=== PATIENT | male | born 1980 | race Caucasian/White ===

== ENCOUNTER 2018-09-10 11:34 | Emergency (ER) | payer SELFPAY ==
[~2018-09-10 11:34] MED LIST: AMOX500C7 PO; CEP250 PO; CLAR500T3 PO; DOXY-179 PO; NO RTN MEDS; OMEP40CA45 PO; WARF5VIA3 PO; [UNRECOGNIZED DRUG - CODE] PO
--- NOTE | 2018-09-10 11:35 | ER Report ---
History and Physical Time Seen By MD: 11:32 HPI/ROS CHIEF COMPLAINT: Medication withdrawal HISTORY OF PRESENT ILLNESS: Patient is a 37-year-old male here with complaints of medication withdrawal from Effexor which he ran out of 3-4 days ago. Patient reportedly was incarcerated up to July 22 per patient report and was given a 30 day supply of this medication which she reports taking 375 mg daily. Patient reports that since running out of the medication he has become increasingly aggressive, anxious and attributes the symptoms to medication withdrawal side effects. Patient reports headache, generalized anxiety. Denies homicidal or suicidal ideations. REVIEW OF SYSTEMS: Constitutional: No fever, no chills. Eyes: No discharge. + Blurry vision ENT: No sore throat. Cardiovascular: No chest pain, no palpitations. Respiratory: No cough, no shortness of breath. Gastrointestinal: No abdominal pain, no vomiting. Genitourinary: No hematuria. Musculoskeletal: No back pain. Skin: No rashes. Neurological: + headache. Psych: Generalized anxiety, denies suicidal or homicidal ideations Allergies: Coded Allergies: No Known Allergies (Verified Allergy, Mild, 09/03/11) Home Meds Active Scripts Venlafaxine Hcl (VENLAFAXINE HCL ER) 150 Mg Tab.er.24, 300 MG PO QDAY for 30 Days, #60 TAB Prov:JACINTA CERNA DO 09/10/18 Venlafaxine Hcl (VENLAFAXINE HCL ER) 75 Mg Cap.er.24h, 75 MG PO QDAY for 30 Days, #30 TAB Prov:JACINTA CERNA DO 09/10/18 Reported Medications Venlafaxine Hcl (EFFEXOR XR) 150 Mg Cap.er.24h, 300 MG PO QDAY 09/10/18 Venlafaxine Hcl (EFFEXOR XR) 75 Mg Cap.er.24h, 75 MG PO QDAY 09/10/18 Discontinued Reported Medications Omeprazole (Prilosec) 40 Mg Capsule.dr, 40 MG PO QDAY, #14 12/13/11 Clarithromycin (BIAXIN (OR EQUIV)) 500 Mg Tab, 500 MG PO BID, #14 12/13/11 Amoxicillin (AMOXIL (OR EQUIV)) 500 Mg Cap, 1000 MG PO BID, #14 12/13/11 Warfarin Sodium (Coumadin) 5 Mg/Vial Vial, 5 MG PO QDAY, #30 It is very important that you take your coumadin exactly as prescribed, have blood work to monitor your PT/INR values, and follow up with your health care provider as prescribed. Diet and medication can affect the PT/INR level. Keep your diet pretty much the same day to day. Many foods contain Vitamin K which helps blood to clot and can affect the way your coumadin works. You don't need to avoid foods that have Vitamin K, but you do need to eat about the same amount of them every day. Be sure to tell your provider before changing your diet for any reason (weight loss, illness, etc.) Do not start or discontinue any medications, prescribed or over the counter, except on the advise of your provider or pharmacist. Coumadin (Warfarin) increases the risk of bleeding. 12/13/11 Cephalexin Monohydrate (Keflex) 250 Mg Cap, 250 MG PO TID, #15 09/03/11 [No Rtn Meds] No Conflict Check, 0 Refills 02/04/10 Hx Smoking: Yes (1 PPD) Hx Substance Use Disorder: No Hx Alcohol Use: No Constitutional Vital Sign - Last 24 Hours 09/10/18 11:38 Pulse 91 Resp 18 B/P (MAP) 116/73 Pulse Ox 98 O2 Delivery Room Air Physical Exam General Appearance: The patient is alert, has no immediate need for airway protection and no signs of toxicity. Anxious appearing, tremulous Eyes: Pupils equal and round no pallor or injection. ENT, Mouth: Mucous membranes are moist. Respiratory: There are no retractions, lungs are clear to auscultation. Cardiovascular: Regular rate and rhythm. Gastrointestinal: Abdomen is soft and non tender, no masses, bowel sounds normal. Neurological: No focal neurological deficits, alert and oriented Skin: Warm and dry, no rashes. Musculoskeletal: Neck is supple non tender. Extremities are nontender, nonswollen and have full range of motion. Psych: Anxious appearing, denies homicidal or suicidal ideations DIFFERENTIAL DIAGNOSIS: After history and physical exam differential diagnosis was considered for medication side effect, generalized anxiety disorder, depression, substance use, medications had Medical Decision Making Data Points Result Diagram: 09/10/18 1148 09/10/18 1148 Laboratory Hematology Test 09/10/18 11:48 White Blood Count 4.7 k/uL (4.5-11.0) Red Blood Count 5.50 M/uL (4.00-5.60) Hemoglobin 17.7 g/dL (14.0-18.0) Hematocrit 52.1 % (42.0-52.0) H Mean Corpuscular Volume 94.6 fL (80.0-96.0) Mean Corpuscular Hemoglobin 32.1 pg (26.0-33.0) Mean Corpuscular Hemoglobin Concent 33.9 g/dL (32.0-36.0) Red Cell Distribution Width 13.9 % (11.5-14.5) Platelet Count 242 K/uL (150-450) Mean Platelet Volume 8.3 fL (7.2-11.1) Neutrophils (%) (Auto) 46.6 % (39.4-72.5) Lymphocytes (%) (Auto) 42.6 % (17.6-49.6) Monocytes (%) (Auto) 9.2 % (4.1-12.4) Eosinophils (%) (Auto) 0.8 % (0.4-6.7) Basophils (%) (Auto) 0.8 % (0.3-1.4) Nucleated RBC Relative Count (auto) 0.2 /100WBC Neutrophils # (Auto) 2.2 K/uL (2.0-7.4) Lymphocytes # (Auto) 2.0 K/uL (1.3-3.6) Monocytes # (Auto) 0.4 K/uL (0.3-1.0) Eosinophils # (Auto) 0.0 K/uL (0.0-0.5) Basophils # (Auto) 0.0 K/uL (0.0-0.1) Nucleated RBC Absolute Count (auto) 0.01 K/uL Peripheral Blood Smear No Y/N Chemistry Test 09/10/18 11:48 09/10/18 11:58 Sodium Level 141 mmol/L (137-145) Potassium Level 4.0 mmol/L (3.5-5.0) Chloride Level 103 mmol/L (98-107) Carbon Dioxide Level 26 mmol/L (22-30) Blood Urea Nitrogen 16 mg/dl (9-21) Creatinine 0.90 mg/dl (0.66-1.25) Glomerular Filtration Rate Calc > 60.0 Random Glucose 127 mg/dl (75-110) Calcium Level 9.6 mg/dl (8.4-10.2) Total Bilirubin 0.9 mg/dl (0.2-1.3) Aspartate Amino Transf (AST/SGOT) 41 U/L (0-35) Alanine Aminotransferase (ALT/SGPT) 36 U/L (0-56) Alkaline Phosphatase 60 U/L (0-126) Troponin I < 0.012 ng/ml Total Protein 7.3 g/dl (6.3-8.2) Albumin 4.5 g/dl (3.5-5.0) Lipase 157 U/L (23-300) Whole Blood Glucose 101 mg/DL (75-110) Toxicology Test 09/10/18 11:45 09/10/18 11:48 Urine Opiates Screen Negative Urine Barbiturates Screen Negative Ur Tricyclic Antidepressants Screen Negative Urine Phencyclidine Screen Negative Urine Amphetamines Screen Positive Urine Benzodiazepines Screen Negative Urine Cocaine Screen Negative Urine Cannabinoids Screen Negative Serum Alcohol < 10 mg/dl Urinalysis Test 09/10/18 11:45 Urine Color Yellow Urine Clarity Clear Urine pH 5.0 pH (4.8-9.5) Urine Specific [place] 1.018 Urine Protein Negative mg/dL (NEGATIVE) Urine Glucose (UA) Negative mg/dL (NEGATIVE) Urine Ketones Negative mg/dL (NEGATIVE) Urine Blood Negative (NEGATIVE) Urine Nitrite Negative (NEGATIVE) Urine Bilirubin Negative (NEGATIVE) Urine Urobilinogen Negative mg/dL (0.2-1.9) Urine Leukocyte Esterase Negative (NEGATIVE) Urine RBC <1 /HPF (0-2/HPF) Urine WBC <1 /HPF (0-5/HPF) Urine Squamous Epithelial Cells None /LPF (</=FEW) Urine Bacteria Negative /HPF (NONE-FEW) Urine Mucus Few /HPF (NONE-FEW) EKG/Imaging Imaging PATIENT NAME: Taran Rivero : 1980 MR: [id number] V: [id number] EXAM DATE: ORDERING PHYSICIAN: JACINTA CERNA TECHNOLOGIST: Location: [facility] [place] Patient: Taran Rivero : 1980 Visit/Account:[id number] Date of Sevice: 09/10/2018 CT Head without contrast Indication: Dizziness. Vision problems. Comparison: None available Technique: Axial CT images were obtained through the brain from the skull base to the vertex without administration of IV contrast. Reformatted coronal and sagittal images were also obtained. One of the following dose optimization techniques was utilized in the performance of this exam: automated exposure control; adjustment of the mA and/or kV according to the patient's size; or use of an iterative reconstruction technique. Specific details can be referenced in the facility's radiology CT exam operational policy. Findings: No evidence of mass, mass effect, or midline shift. No acute intracranial hemorrhage or acute territorial infarction. No extra-axial fluid collection or hydrocephalus. No abnormal density. Guadalupe/white matter differentiation appears normal. Bony structures show no fractures or lesions. Mild deviation nasal septum. The visualized paranasal sinuses and mastoid air cells are clear. IMPRESSION: 1. No acute intracranial abnormality. ED Course/Re-evaluation ED Course Patient is a 37-year-old male here with reports of medication withdrawal side effects from Effexor. CT imaging of the head was completed because patient reported having headaches, blurry vision. Patient reports that his last dose was 3-4 days ago and that since then he has been having increased aggression, increasing anxiety. Patient denied homicidal or suicidal ideations. Due to the patient consolation symptoms, labs including electrolytes, urinalysis, tox screen were completed and were unremarkable. Amphetamine was positive however this is likely secondary to Effexor being in his system. There are no signs of infectious etiology. CT showed no acute intracranial findings. Patient was given a one-month supply of Effexor 375 mg and he was given information to establish a primary care provider. Patient was given IV fluids, lorazepam with significant improvement in symptoms. Patient was hemodynamically stable, alert and oriented at time of discharge. Return precautions were provided. Decision to Disposition Date: Sep 10, 2018 Decision to Disposition Time: 13:40 Depart Departure Latest Vital Signs Vital Signs Date Time Temp Pulse Resp B/P (MAP) Pulse Ox O2 Delivery O2 Flow Rate FiO2 09/10/18 11:38 91 18 116/73 98 Room Air Impression: Primary Impression: Medication withdrawal Condition: Improved Disposition: HOME OR SELF-CARE Referrals: NONE,NO PROVIDER XX (PCP) New Scripts Venlafaxine Hcl (VENLAFAXINE HCL ER) 150 Mg Tab.er.24 300 MG PO QDAY for 30 Days, #60 TAB Prov: JACINTA CERNA DO 09/10/18 Venlafaxine Hcl (VENLAFAXINE HCL ER) 75 Mg Cap.er.24h 75 MG PO QDAY for 30 Days, #30 TAB Prov: JACINTA CERNA DO 09/10/18 Patient Instructions: Venlafaxine (By mouth) Additional Instructions: Please drink plenty of water. I've written you a prescription for venlafaxine or Effexor 375 mg which is the dose that you have been taking. Please establish a primary care provider in order to continue treatment. Please return promptly if you develop fevers, worsening headache, inability to keep down food or fluids. JACINTA CERNA DO Sep 10, 2018 11:35
[2018-09-10] MEDS ORDERED: VENL75CA58 PO (11:40)
[2018-09-10] MEDS ORDERED: VENL150C61 PO (11:40)
[2018-09-10] MEDS ORDERED: NS(*) 0.9% 1000 ML BAG 1,000 ML IV ONE (11:46)
[2018-09-10] MEDS ORDERED: LORazepam 2 MG/ML VIAL IVP ONE (11:50)
[2018-09-10 12:02] LABS: PLATELET COUNT, AUTOMATED 242 K/uL (150-450)
--- NOTE | 2018-09-10 13:29 | RADIOLOGY IMAGING REPORT ---
FACILITY: [facility] - [place] PATIENT NAME: Taran Rivero : 1980 MR: [id number] V: [id number] EXAM DATE: ORDERING PHYSICIAN: JACINTA CERNA TECHNOLOGIST: [facility] [place] Patient: Taran Rivero : 1980 Visit/Account:[id number] Date of Sevice: 09/10/2018 CT Head without contrast Indication: Dizziness. Vision problems. Comparison: None available Technique: Axial CT images were obtained through the brain from the skull base to the vertex without administration of IV contrast. Reformatted coronal and sagittal images were also obtained. One of the following dose optimization techniques was utilized in the performance of this exam: autom ated exposure control; adjustment of the mA and/or kV according to the patient's size; or use of an i terative reconstruction technique. Specific details can be referenced in the facility's radiology CT exam operational policy. Findings: No evidence of mass, mass effect, or midline shift. No acute intracranial hemorrhage or acute territorial infarction. No extra-axial fluid collection or hydrocephalus. No abnormal density. [place]upe/white matter differentiat ion appears normal. Bony structures show no fractures or lesions. Mild deviation nasal septum. The visualized paranasal sinuses and mastoid air cells are clear. IMPRESSION: 1. No acute intracranial abnormality. Report Dictated By: Noah Richter at 09/10/2018 1:17 PM Report E-Signed By: Noah Richter at 09/10/2018 1:21 PM WSN:[id number]
[2018-09-10 13:30] VITALS: BP 122/95
[2018-09-10] MEDS ORDERED: VENL75CA4 PO (13:42)
[2018-09-10] MEDS ORDERED: VENL150T10 PO (13:42)
--- NOTE | 2018-09-10 16:53 | EKG ---
FACILITY: [facility] PATIENT NAME: NATALIE GALLO : [id number] MR: [id number] V: [id number] EXAM DATE: ORDERING PHYSICIAN: JACINTA CERNA TECHNOLOGIST: Test Reason : w/d Blood Pressure : / mmHG Vent. Rate : 090 BPM Atrial Rate : 090 BPM P-R Int : 168 ms QRS Dur : 090 ms QT Int : 350 ms P-R-T Axes : 069 -16 049 degrees QTc Int : 428 ms Normal sinus rhythm Normal ECG No previous ECGs available Confirmed by YURY RICKS ([id number]) on 09/10/2018 4:52:38 PM Referred By: Confirmed By:YURY RICKS
== END 2018-09-10 13:54 | disposition home or self-care (01) ==
LOC: ER 11:35
DX: F19.939 Other psychoactive substance use, unspecified with withdrawal, unspecified (principal)
CPT/HCPCS: 36416; 70450; 80305; 80320; 81001; 82948; 83690; 84443; 84484; 85025; 93005; 96361; 96374; 99284; J2060; J7030; 82040; 82247; 82310; 82374; 82435; 82565; 82947; 84075; 84132; 84155; 84295; 84450; 84460; 84520